=== PATIENT | female | born 1955 | race Caucasian/White ===

== ENCOUNTER 2019-10-22 19:16 | Emergency (ER) | payer OTHER, MEDICARE ==
[2019-10-22] MEDS ORDERED: Acetaminophen 500 MG Tab PO ONE (19:35)
--- NOTE | 2019-10-22 19:47 | EDM.PDOC ---
ED HPI GENERAL MEDICAL PROBLEM - General Stated Complaint: FELL Time Seen by Provider: 10/22/19 19:35 Source of Information: Reports: Patient History Limitations: Reports: No Limitations - History of Present Illness INITIAL COMMENTS - FREE TEXT/NARRATIVE: Patient comes emergency department today with complaints of a fall. Approximately 1:00 this afternoon the patient was trying to get into her bathtub when she was stepping up and over and with her right leg her left leg got caught and she fell spinning landing on the floor on her coccyx. She did not get knocked out. She has no head ache. No neck pain. She does complain of pain in the lower back. She denies any saddle anesthesia. No change in the functionality of her lower extremities. No paresthesias of the lower extremities. No loss or change in bowel or bladder. She complains of pain right on her tailbone when she sits down or stands up she has not take anything for pain prior to arrival. coccyx Pain Score (Numeric/FACES): 1 - Related Data Allergies Allergy/AdvReac Type Severity Reaction Status Date / Time adhesive Allergy Other Verified 10/22/19 19:53 Home Meds: Home Meds ARIPiprazole [Abilify] 5 mg PO DAILY 09/08/13 [History] lamoTRIgine [Lamotrigine] 1 tab PO DAILY 03/14/16 [History] lamoTRIgine [Lamotrigine] 2 tab PO BEDTIME 03/14/16 [History] Alendronate [Fosamax] 01/23/18 [History] Anastrozole [Arimidex] 1 tab PO DAILY 01/23/18 [History] Aspirin 1 tab PO DAILY 01/23/18 [History] Cholecalciferol (Vitamin D3) [Vitamin D3] 1 tab PO DAILY 01/23/18 [History] LORazepam [Ativan] 1 mg PO BEDTIME 01/23/18 [History] Multivitamin [Multivitamins] 1 tab PO DAILY 01/23/18 [History] [place]-3 Fatty Acids [Massena-3] 1,000 mg PO DAILY 01/23/18 [History] Vit A and D3 in Cod Liver Oil [Cod Liver Oil Softgel] 1 cap PO DAILY 01/23/18 [History] Vitamin E 1 cap PO DAILY 01/23/18 [History] LORazepam [Ativan] 0.5 mg PO DAILY 03/06/18 [History] Past Medical History HEENT History: Reports: Cataract Cardiovascular History: Reports: Other (See Below) Other Cardiovascular History: CHEST PAIN- NON CARDIAC Respiratory History: Reports: None Gastrointestinal History: Reports: None Musculoskeletal History: Reports: Arthritis, Other (See Below) Other Musculoskeletal History: 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 bells palsy Psychiatric History: Reports: Bipolar Other Psychiatric History: ECT 12 treatments 2009 Endocrine/Metabolic History: Reports: Obesity/BMI 30+, Osteopenia, Other (See Below) Other Endocrine/Metabolic History: impaired fasting glucose Hematologic History: Reports: None Immunologic History: Reports: None Oncologic (Cancer) History: Reports: Breast Dermatologic History: Reports: None - Past Surgical History Respiratory Surgical History: Reports: None GI Surgical History: Reports: None Female Surgical History: Reports: Other (See Below) Other Female Surgeries/Procedures: D&C, lump ectomy, lymphectomy Endocrine Surgical History: Reports: None Neurological Surgical History: Reports: None Musculoskeletal Surgical History: Reports: None Oncologic Surgical History: Reports: Lumpectomy, Other (See Below) Other Oncologic Surgeries/Procedures: lymphectomy Dermatological Surgical History: Reports: None ED ROS GENERAL - Review of Systems Review Of Systems: Comprehensive ROS is negative, except as noted in HPI. ED EXAM,LOWER BACK PAIN/INJURY - Physical Exam Exam: See Below Exam Limited By: No Limitations General Appearance: Alert, WD/WN, Mild Distress Respiratory/Chest: No Respiratory Distress Cardiovascular: Normal Peripheral Pulses Back Exam: Paraspinal Tenderness (Lower lumbar regions without any Bruising swelling ecchymosis or bony deformities or step-offs.) Neurological: Alert, Normal Mood/Affect, Normal Dorsiflexion, Normal Plantar Flexion, Normal Gait, Normal Reflexes, No Motor/Sensory Deficits, Oriented x 3 DTR - Lower Extremities: 2+: Knee (R), Knee (L), Ankle (R), Ankle (L) Skin Exam: Warm, Dry, Intact, Normal Color Course - Vital Signs Last Recorded V/S: Last Vital Signs Temp 99.3 F 10/22/19 19:16 Pulse 112 H 10/22/19 19:16 Resp 16 10/22/19 19:16 BP 143/97 H 10/22/19 19:16 Pulse Ox 93 L 10/22/19 19:16 - Orders/Labs/Meds Meds: Medications Discontinued Medications Generic Name Dose Route Start Last Admin Trade Name Shaila PRN Reason Stop Dose Admin Acetaminophen 1,000 mg 10/22/19 19:35 10/22/19 19:57 Tylenol Extra Strength PO 10/22/19 19:36 1,000 mg ONETIME ONE Administration - Radiology Interpretation Free Text/Narrative:: X-ray of the pelvis per radiology shows no acute osseous abnormality. Compression deformity of the L3 vertebral body with approximately 10% loss of body height. No significant retropulsion. Suspect acute compression deformity of the L3 vertebral body per radiology. Multilevel degenerative changes of the lumbar spine. Departure - Departure Time of Disposition: 20:37 Disposition: Home, Self-Care 01 Clinical Impression: Lumbar compression fracture Qualifiers: Encounter type: initial encounter Lumbar vertebra fracture level: L3 Qualified Code(s): S32.030A - Wedge compression fracture of third lumbar vertebra, initial encounter for closed fracture - Discharge Information Instructions: Spinal Compression Fracture Additional Instructions: Tylenol as needed for pain. See physical therapy friday for assessment and treatment. RICE therapy. Ice to the sore areas. Make position changes slowly. Do not bed ridden yourself as you will get more stiff. There is a line of too little and too much physical activity only you will know, Physical therapy will help with this. Recheck with your PCP next week. Consider Forteo with your history. If pain not controlled with above. [place] 1 tablet every 6 hrs with food as needed for pain. Caution sedation. Do not take this medication with Tylenol as they have the same medications in them. Started pack from the ED and RX given to the patient. #12. Return to the ED if new or worsening symptoms. Sepsis Event Note (ED) - Focused Exam Vital Signs: Vital Signs Temp Pulse Resp BP Pulse Ox 10/22/19 19:16 99.3 F 112 H 16 143/97 H 93 L - Assessment/Plan Assessment:: Acute L3 compression fracture from fall. Hx of osteoporosis. Plan: Tylenol as needed for pain. See physical therapy friday for assessment and treatment. RICE therapy. Ice to the sore areas. Make position changes slowly. Do not bed ridden yourself as you will get more stiff. There is a line of too little and too much physical activity only you will know, Physical therapy will help with this. Recheck with your PCP next week. If pain not controlled with above. [place] 1 tablet every 6 hrs with food as needed for pain. Caution sedation. Do not take this medication with Tylenol as they have the same medications in them. Started pack from the ED and RX given to the patient. #12. Return to the ED if new or worsening symptoms.
[2019-10-22 19:53] VITALS: BP 143/97; PULSE 112
--- NOTE | 2019-10-22 20:17 | CR ---
[id number] RAD/RAD Pelvis 1-2V EXAM: SINGLE VIEW PELVIS. INDICATION: FALL, COCCYX PAIN COMPARISON: None. DISCUSSION: No fracture, dislocation or other acute osseous abnormality. IMPRESSION: 1. No acute osseous abnormalities. Monster Martinez DO 10/22/192014 Thank you for allowing us to participate in the care of your patient.
--- NOTE | 2019-10-22 20:30 | CR ---
[id number] RAD/RAD Lumbar Spine W Oblique 4V EXAM: AP AND LATERAL LUMBAR SPINE. INDICATION: Trauma. COMPARISON: No previous similar exam is available for comparison. FINDINGS: Suspect acute compression deformity of the L3 vertebral body with approximately 10% loss of body height. No other fractures are identified. Mild multilevel degenerative changes of the lumbar spine including loss of disc space height, endplate osteophytosis and facet arthropathy. These findings are most pronounced at L5-S1. Vascular calcifications IMPRESSION: COMPRESSION DEFORMITY OF THE L3 VERTEBRAL BODY WITH APPROXIMATELY 10% LOSS OF BODY HEIGHT. NO SIGNIFICANT RETROPULSION. Monster Martinez DO 10/22/192028 Thank you for allowing us to participate in the care of your patient.
[2019-10-22] MEDS ORDERED: Take Home: Acetaminophen/HYDROcodone 325-5 MG, 5 Tab Pack PO ONE (20:41)
== END 2019-10-22 20:55 | disposition home or self-care (01) ==
LOC: VM.ED 19:16
DX: S32.039A Unspecified fracture of third lumbar vertebra, initial encounter for closed fracture (principal); E66.9 Obesity, unspecified; Z91.09 Other allergy status, other than to drugs and biological substances; Z79.82 Long term (current) use of aspirin; Z79.899 Other long term (current) drug therapy; Z68.35 Body mass index [BMI] 35.0-35.9, adult; W18.2XXA Fall in (into) shower or empty bathtub, initial encounter
CPT/HCPCS: 72110; 72170; 99283; A9270

== ENCOUNTER 2021-10-15 11:37 | Inpatient (IN) | payer OTHER, MEDICARE ==
[2021-10-15] MEDS ORDERED: oxyCODONE 5 MG Tab PO PRN (11:56)
[2021-10-15] MEDS ORDERED: Acetaminophen 325 MG Tab PO PRN (11:56)
[2021-10-15] MEDS ORDERED: Albuterol/Ipratropium 3.0-0.5 MG/3 ML Neb Soln NEB PRN (13:00)
[2021-10-15 13:11] LABS: ANION GAP 14.2 mmol/L (5-15)
[2021-10-15] MEDS ORDERED: Calcium Carbonate 750 MG Tab.Chew PO PRN (13:23)
[2021-10-15] MEDS: DRONABINOL 2.5 MG PO SCH (17:22)
[2021-10-15] MEDS: lamoTRIgine 100 MG Tab PO SCH (20:09)
[2021-10-15] MEDS: atorvaSTATin 10 MG Tab PO SCH (20:09)
[2021-10-15] MEDS: Amoxicillin/Clavulanate K 875-125 MG Tab PO SCH (20:09)
[2021-10-15] MEDS: buPROPion 100 MG Tab.SR PO SCH (20:09)
[2021-10-15] MEDS: LORazepam 1 MG Tab PO SCH (20:09)
[2021-10-15] MEDS ORDERED: lamoTRIgine 100 MG Tab PO SCH (21:00)
[2021-10-16] MEDS: DRONABINOL 2.5 MG PO SCH ×2 (06:11→17:28)
[2021-10-16] MEDS ORDERED: Potassium Chloride 20 MEQ Tab.ER PO ONE (07:08)
[2021-10-16] MEDS: Fluconazole 100 MG Tab PO SCH (08:22)
[2021-10-16] MEDS: ARIPiprazole 5 MG Tab PO SCH (08:22)
[2021-10-16] MEDS: Amoxicillin/Clavulanate K 875-125 MG Tab PO SCH ×2 (08:22→20:06)
[2021-10-16] MEDS: buPROPion 150 MG Tab.ER PO SCH (08:22)
[2021-10-16] MEDS: LORazepam 0.5 MG Tab PO SCH (08:22)
[2021-10-16] MEDS: Tamsulosin 0.4 MG Cap.ER PO SCH (08:23)
[2021-10-16] MEDS ORDERED: ACETIC ACID 0.25% TOP PRN (09:43)
[2021-10-16] MEDS: buPROPion 100 MG Tab.SR PO SCH (20:06)
[2021-10-16] MEDS: atorvaSTATin 10 MG Tab PO SCH (20:06)
[2021-10-16] MEDS: LORazepam 1 MG Tab PO SCH (20:06)
[2021-10-16] MEDS: lamoTRIgine 100 MG Tab PO SCH (20:07)
[2021-10-17] MEDS: DRONABINOL 2.5 MG PO SCH ×2 (06:07→18:13)
[2021-10-17] MEDS: buPROPion 150 MG Tab.ER PO SCH (09:10)
[2021-10-17] MEDS: ARIPiprazole 5 MG Tab PO SCH (09:10)
[2021-10-17] MEDS: Tamsulosin 0.4 MG Cap.ER PO SCH (09:10)
[2021-10-17] MEDS: Fluconazole 100 MG Tab PO SCH (09:11)
[2021-10-17] MEDS: Amoxicillin/Clavulanate K 875-125 MG Tab PO SCH ×2 (09:11→20:26)
[2021-10-17] MEDS: LORazepam 0.5 MG Tab PO SCH (09:11)
[2021-10-17] MEDS: buPROPion 100 MG Tab.SR PO SCH (20:26)
[2021-10-17] MEDS: atorvaSTATin 10 MG Tab PO SCH (20:26)
[2021-10-17] MEDS: LORazepam 1 MG Tab PO SCH (20:26)
[2021-10-17] MEDS: lamoTRIgine 100 MG Tab PO SCH (20:26)
[2021-10-18] MEDS: DRONABINOL 2.5 MG PO SCH (06:16)
[2021-10-18] MEDS ORDERED: LORazepam 0.5 MG Tab PO ONE (07:00)
[2021-10-18] MEDS: ARIPiprazole 5 MG Tab PO SCH (08:19)
[2021-10-18] MEDS: Fluconazole 100 MG Tab PO SCH (08:19)
[2021-10-18] MEDS: buPROPion 150 MG Tab.ER PO SCH (08:19)
[2021-10-18] MEDS: Amoxicillin/Clavulanate K 875-125 MG Tab PO SCH ×2 (08:20→20:19)
[2021-10-18] MEDS: Tamsulosin 0.4 MG Cap.ER PO SCH (08:20)
[2021-10-18] MEDS: LORazepam 0.5 MG Tab PO SCH (08:20)
[2021-10-18] MEDS: lamoTRIgine 100 MG Tab PO SCH (20:18)
[2021-10-18] MEDS: atorvaSTATin 10 MG Tab PO SCH (20:19)
[2021-10-18] MEDS: buPROPion 100 MG Tab.SR PO SCH (20:19)
[2021-10-18] MEDS: LORazepam 1 MG Tab PO SCH (20:19)
[2021-10-19] MEDS: ARIPiprazole 5 MG Tab PO SCH (08:36)
[2021-10-19] MEDS: LORazepam 0.5 MG Tab PO SCH (08:37)
[2021-10-19] MEDS: buPROPion 150 MG Tab.ER PO SCH (08:37)
[2021-10-19] MEDS: Tamsulosin 0.4 MG Cap.ER PO SCH (08:37)
[2021-10-19] MEDS: LORazepam 1 MG Tab PO SCH (20:10)
[2021-10-19] MEDS: atorvaSTATin 10 MG Tab PO SCH (20:10)
[2021-10-19] MEDS: lamoTRIgine 100 MG Tab PO SCH (20:10)
[2021-10-19] MEDS: buPROPion 100 MG Tab.SR PO SCH (20:10)
[2021-10-20] MEDS: buPROPion 150 MG Tab.ER PO SCH (09:04)
[2021-10-20] MEDS: LORazepam 0.5 MG Tab PO SCH (09:04)
[2021-10-20] MEDS: ARIPiprazole 5 MG Tab PO SCH (09:04)
[2021-10-20] MEDS: Tamsulosin 0.4 MG Cap.ER PO SCH (09:04)
[2021-10-20] MEDS: lamoTRIgine 100 MG Tab PO SCH (21:40)
[2021-10-20] MEDS: buPROPion 100 MG Tab.SR PO SCH (21:40)
[2021-10-20] MEDS: LORazepam 1 MG Tab PO SCH (21:41)
[2021-10-20] MEDS: atorvaSTATin 10 MG Tab PO SCH (21:42)
[2021-10-21] MEDS: Tamsulosin 0.4 MG Cap.ER PO SCH (08:12)
[2021-10-21] MEDS: buPROPion 150 MG Tab.ER PO SCH (08:12)
[2021-10-21] MEDS: ARIPiprazole 5 MG Tab PO SCH (08:12)
[2021-10-21] MEDS: LORazepam 0.5 MG Tab PO SCH (08:12)
[2021-10-21] MEDS: LORazepam 1 MG Tab PO SCH (21:21)
[2021-10-21] MEDS: atorvaSTATin 10 MG Tab PO SCH (21:21)
[2021-10-21] MEDS: lamoTRIgine 100 MG Tab PO SCH (21:21)
[2021-10-21] MEDS: buPROPion 100 MG Tab.SR PO SCH (21:21)
[2021-10-22] MEDS: buPROPion 150 MG Tab.ER PO SCH (08:04)
[2021-10-22] MEDS: ARIPiprazole 5 MG Tab PO SCH (08:04)
[2021-10-22] MEDS: LORazepam 0.5 MG Tab PO SCH (08:05)
[2021-10-22] MEDS: Tamsulosin 0.4 MG Cap.ER PO SCH (08:05)
[2021-10-22] MEDS: lamoTRIgine 100 MG Tab PO SCH (21:03)
[2021-10-22] MEDS: buPROPion 100 MG Tab.SR PO SCH (21:04)
[2021-10-22] MEDS: LORazepam 1 MG Tab PO SCH (21:04)
[2021-10-22] MEDS: atorvaSTATin 10 MG Tab PO SCH (21:04)
[2021-10-23] MEDS: LORazepam 0.5 MG Tab PO SCH (08:03)
[2021-10-23] MEDS: ARIPiprazole 5 MG Tab PO SCH (08:03)
[2021-10-23] MEDS: Tamsulosin 0.4 MG Cap.ER PO SCH (08:03)
[2021-10-23] MEDS: buPROPion 150 MG Tab.ER PO SCH (08:03)
[2021-10-23] MEDS: buPROPion 100 MG Tab.SR PO SCH (20:08)
[2021-10-23] MEDS: lamoTRIgine 100 MG Tab PO SCH (20:09)
[2021-10-23] MEDS: atorvaSTATin 10 MG Tab PO SCH (20:09)
[2021-10-23] MEDS: LORazepam 1 MG Tab PO SCH (20:09)
[2021-10-24] MEDS: Tamsulosin 0.4 MG Cap.ER PO SCH (08:24)
[2021-10-24] MEDS: LORazepam 0.5 MG Tab PO SCH (08:24)
[2021-10-24] MEDS: buPROPion 150 MG Tab.ER PO SCH (08:24)
[2021-10-24] MEDS: ARIPiprazole 5 MG Tab PO SCH (08:25)
[2021-10-24] MEDS: lamoTRIgine 100 MG Tab PO SCH (20:01)
[2021-10-24] MEDS: LORazepam 1 MG Tab PO SCH (20:02)
[2021-10-24] MEDS: buPROPion 100 MG Tab.SR PO SCH (20:03)
[2021-10-24] MEDS: atorvaSTATin 10 MG Tab PO SCH (20:03)
[2021-10-25 07:12] LABS: ANION GAP 11.9 mmol/L (5-15)
[2021-10-25] MEDS ORDERED: NS with KCl 40mEq 1,000 ML IV SCH (07:30)
[2021-10-25] MEDS: buPROPion 150 MG Tab.ER PO SCH (08:04)
[2021-10-25] MEDS: Tamsulosin 0.4 MG Cap.ER PO SCH (08:05)
[2021-10-25] MEDS: ARIPiprazole 5 MG Tab PO SCH (08:05)
[2021-10-25] MEDS: LORazepam 0.5 MG Tab PO SCH (08:05)
[2021-10-25] MEDS: Docusate Sodium 100 MG Cap PO SCH (08:06)
[2021-10-25 15:32] LABS: ANION GAP 12.8 mmol/L (5-15)
[2021-10-25] MEDS ORDERED: Magnesium Chloride 64 MG Tab.ER PO ONE ×2 (15:45→18:00)
[2021-10-25] MEDS: LORazepam 1 MG Tab PO SCH (20:31)
[2021-10-25] MEDS: buPROPion 100 MG Tab.SR PO SCH (20:31)
[2021-10-25] MEDS: lamoTRIgine 100 MG Tab PO SCH (20:33)
[2021-10-25] MEDS: atorvaSTATin 10 MG Tab PO SCH (20:34)
[2021-10-26] MEDS: LORazepam 0.5 MG Tab PO SCH (08:47)
[2021-10-26] MEDS: Tamsulosin 0.4 MG Cap.ER PO SCH (08:48)
[2021-10-26] MEDS: Potassium Chloride 10 MEQ Tab.ER PO SCH (08:48)
[2021-10-26] MEDS: Docusate Sodium 100 MG Cap PO SCH (08:48)
[2021-10-26] MEDS: ARIPiprazole 5 MG Tab PO SCH (08:48)
[2021-10-26] MEDS: buPROPion 150 MG Tab.ER PO SCH (08:49)
[2021-10-26] MEDS: Sodium Chloride 0.9% 10 ML Syringe FLUSH PRN (09:04)
[2021-10-26] MEDS: Magnesium Chloride 64 MG Tab.ER PO SCH ×2 (11:46→20:28)
[2021-10-26] MEDS: Nitrofurantoin Monohydrate/Macrocrystalline 100 MG Cap PO SCH (17:39)
[2021-10-26] MEDS: buPROPion 100 MG Tab.SR PO SCH (20:24)
[2021-10-26] MEDS: atorvaSTATin 10 MG Tab PO SCH (20:26)
[2021-10-26] MEDS: LORazepam 1 MG Tab PO SCH (20:28)
[2021-10-26] MEDS: lamoTRIgine 100 MG Tab PO SCH (20:32)
[2021-10-27] MEDS: Sodium Chloride 0.9% 10 ML Syringe FLUSH PRN (08:32)
[2021-10-27] MEDS: Magnesium Chloride 64 MG Tab.ER PO SCH ×2 (08:34→20:50)
[2021-10-27] MEDS: ARIPiprazole 5 MG Tab PO SCH (08:34)
[2021-10-27] MEDS: Tamsulosin 0.4 MG Cap.ER PO SCH (08:35)
[2021-10-27] MEDS: Docusate Sodium 100 MG Cap PO SCH (08:35)
[2021-10-27] MEDS: LORazepam 0.5 MG Tab PO SCH (08:35)
[2021-10-27] MEDS: Potassium Chloride 10 MEQ Tab.ER PO SCH (08:35)
[2021-10-27] MEDS: buPROPion 150 MG Tab.ER PO SCH (08:36)
[2021-10-27] MEDS: Nitrofurantoin Monohydrate/Macrocrystalline 100 MG Cap PO SCH ×2 (08:36→20:47)
[2021-10-27] MEDS: Lactobacillus Rhamnosus GG (Probiotic) Cap PO SCH (12:14)
[2021-10-27] MEDS: LORazepam 1 MG Tab PO SCH (20:48)
[2021-10-27] MEDS: atorvaSTATin 10 MG Tab PO SCH (20:49)
[2021-10-27] MEDS: buPROPion 100 MG Tab.SR PO SCH (20:50)
[2021-10-27] MEDS: lamoTRIgine 100 MG Tab PO SCH (20:51)
[2021-10-28] MEDS: Docusate Sodium 100 MG Cap PO SCH (08:49)
[2021-10-28] MEDS: ARIPiprazole 5 MG Tab PO SCH (08:49)
[2021-10-28] MEDS: Magnesium Chloride 64 MG Tab.ER PO SCH ×2 (08:49→20:40)
[2021-10-28] MEDS: Nitrofurantoin Monohydrate/Macrocrystalline 100 MG Cap PO SCH ×2 (08:50→20:43)
[2021-10-28] MEDS: Potassium Chloride 10 MEQ Tab.ER PO SCH (08:51)
[2021-10-28] MEDS: Lactobacillus Rhamnosus GG (Probiotic) Cap PO SCH (08:51)
[2021-10-28] MEDS: LORazepam 0.5 MG Tab PO SCH (08:51)
[2021-10-28] MEDS: Tamsulosin 0.4 MG Cap.ER PO SCH (08:52)
[2021-10-28] MEDS: buPROPion 150 MG Tab.ER PO SCH (08:52)
[2021-10-28] MEDS: Sodium Chloride 0.9% 10 ML Syringe FLUSH PRN (16:32)
[2021-10-28] MEDS: buPROPion 100 MG Tab.SR PO SCH (20:40)
[2021-10-28] MEDS: LORazepam 1 MG Tab PO SCH (20:41)
[2021-10-28] MEDS: atorvaSTATin 10 MG Tab PO SCH (20:42)
[2021-10-28] MEDS: lamoTRIgine 100 MG Tab PO SCH (20:43)
[2021-10-29] MEDS: LORazepam 0.5 MG Tab PO SCH (08:00)
[2021-10-29] MEDS: Nitrofurantoin Monohydrate/Macrocrystalline 100 MG Cap PO SCH ×2 (08:00→20:05)
[2021-10-29] MEDS: Magnesium Chloride 64 MG Tab.ER PO SCH ×2 (08:03→20:07)
[2021-10-29] MEDS: Docusate Sodium 100 MG Cap PO SCH (08:03)
[2021-10-29] MEDS: ARIPiprazole 5 MG Tab PO SCH (08:03)
[2021-10-29] MEDS: Tamsulosin 0.4 MG Cap.ER PO SCH (08:04)
[2021-10-29] MEDS: Potassium Chloride 10 MEQ Tab.ER PO SCH (08:04)
[2021-10-29] MEDS: buPROPion 150 MG Tab.ER PO SCH (08:04)
[2021-10-29] MEDS: Lactobacillus Rhamnosus GG (Probiotic) Cap PO SCH (08:05)
[2021-10-29] MEDS ORDERED: ARIPiprazole 5 MG Tab PO ONE (09:15)
[2021-10-29] MEDS: buPROPion 100 MG Tab.SR PO SCH (20:04)
[2021-10-29] MEDS: atorvaSTATin 10 MG Tab PO SCH (20:04)
[2021-10-29] MEDS: LORazepam 1 MG Tab PO SCH (20:06)
[2021-10-29] MEDS: lamoTRIgine 100 MG Tab PO SCH (20:07)
[2021-10-30] MEDS: Potassium Chloride 10 MEQ Tab.ER PO SCH (08:43)
[2021-10-30] MEDS: ARIPiprazole 5 MG Tab PO SCH (08:44)
[2021-10-30] MEDS: LORazepam 0.5 MG Tab PO SCH (08:44)
[2021-10-30] MEDS: Lactobacillus Rhamnosus GG (Probiotic) Cap PO SCH (08:44)
[2021-10-30] MEDS: buPROPion 150 MG Tab.ER PO SCH (08:44)
[2021-10-30] MEDS: Docusate Sodium 100 MG Cap PO SCH (08:45)
[2021-10-30] MEDS: Nitrofurantoin Monohydrate/Macrocrystalline 100 MG Cap PO SCH ×2 (08:45→20:58)
[2021-10-30] MEDS: Tamsulosin 0.4 MG Cap.ER PO SCH (08:45)
[2021-10-30] MEDS: Magnesium Chloride 64 MG Tab.ER PO SCH ×2 (08:51→20:58)
[2021-10-30] MEDS: buPROPion 100 MG Tab.SR PO SCH (20:58)
[2021-10-30] MEDS: atorvaSTATin 10 MG Tab PO SCH (20:58)
[2021-10-30] MEDS: lamoTRIgine 100 MG Tab PO SCH (20:58)
[2021-10-30] MEDS: LORazepam 1 MG Tab PO SCH (20:58)
[2021-10-31 07:18] LABS: ANION GAP 11.6 mmol/L (5-15)
[2021-10-31] MEDS: Potassium Chloride 10 MEQ Tab.ER PO SCH (08:49)
[2021-10-31] MEDS: buPROPion 150 MG Tab.ER PO SCH (08:49)
[2021-10-31] MEDS: Tamsulosin 0.4 MG Cap.ER PO SCH (08:49)
[2021-10-31] MEDS: Magnesium Chloride 64 MG Tab.ER PO SCH ×2 (08:49→21:20)
[2021-10-31] MEDS: ARIPiprazole 5 MG Tab PO SCH (08:49)
[2021-10-31] MEDS: Nitrofurantoin Monohydrate/Macrocrystalline 100 MG Cap PO SCH (08:50)
[2021-10-31] MEDS: Lactobacillus Rhamnosus GG (Probiotic) Cap PO SCH (08:50)
[2021-10-31] MEDS: Docusate Sodium 100 MG Cap PO SCH (08:50)
[2021-10-31] MEDS: LORazepam 0.5 MG Tab PO SCH (08:50)
[2021-10-31] MEDS: buPROPion 100 MG Tab.SR PO SCH (21:20)
[2021-10-31] MEDS: atorvaSTATin 10 MG Tab PO SCH (21:20)
[2021-10-31] MEDS: LORazepam 1 MG Tab PO SCH (21:21)
[2021-10-31] MEDS: lamoTRIgine 100 MG Tab PO SCH (21:21)
[2021-11-01] MEDS: ARIPiprazole 5 MG Tab PO SCH (09:32)
[2021-11-01] MEDS: LORazepam 0.5 MG Tab PO SCH (09:33)
[2021-11-01] MEDS: Magnesium Chloride 64 MG Tab.ER PO SCH ×2 (09:33→20:27)
[2021-11-01] MEDS: Potassium Chloride 10 MEQ Tab.ER PO SCH (09:35)
[2021-11-01] MEDS: Lactobacillus Rhamnosus GG (Probiotic) Cap PO SCH (09:35)
[2021-11-01] MEDS: buPROPion 150 MG Tab.ER PO SCH (09:35)
[2021-11-01] MEDS: Tamsulosin 0.4 MG Cap.ER PO SCH (09:35)
[2021-11-01] MEDS: Docusate Sodium 100 MG Cap PO SCH (09:35)
[2021-11-01] MEDS ORDERED: LORazepam 1 MG Tab PO PRN (14:46)
[2021-11-01] MEDS: atorvaSTATin 10 MG Tab PO SCH (20:28)
[2021-11-01] MEDS: buPROPion 100 MG Tab.SR PO SCH (20:28)
[2021-11-01] MEDS: LORazepam 1 MG Tab PO SCH (20:28)
[2021-11-01] MEDS: lamoTRIgine 100 MG Tab PO SCH (20:30)
[2021-11-02 07:44] VITALS: BP 132/67; PULSE 98
[2021-11-02] MEDS: ARIPiprazole 5 MG Tab PO SCH (08:09)
[2021-11-02] MEDS: Potassium Chloride 10 MEQ Tab.ER PO SCH (08:09)
[2021-11-02] MEDS: Tamsulosin 0.4 MG Cap.ER PO SCH (08:10)
[2021-11-02] MEDS: buPROPion 150 MG Tab.ER PO SCH (08:10)
[2021-11-02] MEDS: Lactobacillus Rhamnosus GG (Probiotic) Cap PO SCH (08:10)
[2021-11-02] MEDS: LORazepam 0.5 MG Tab PO SCH (08:10)
[2021-11-02] MEDS: Magnesium Chloride 64 MG Tab.ER PO SCH (08:10)
[2021-11-02] MEDS: Docusate Sodium 100 MG Cap PO SCH (08:11)
== END 2021-11-02 12:35 | disposition home health service (06) | DRG 949 ==
LOC: VM.MS 11:37
PROVIDERS: ADMIT Family Medicine; ATTEND Family Medicine
DX: T81.40XD Infection following a procedure, unspecified, subsequent encounter (principal); N39.0 Urinary tract infection, site not specified; G89.18 Other acute postprocedural pain; R33.8 Other retention of urine; Z90.49 Acquired absence of other specified parts of digestive tract; E66.9 Obesity, unspecified; F31.9 Bipolar disorder, unspecified; F17.210 Nicotine dependence, cigarettes, uncomplicated; M51.36 Other intervertebral disc degeneration, lumbar region; Z85.038 Personal history of other malignant neoplasm of large intestine; Z79.899 Other long term (current) drug therapy; Z91.09 Other allergy status, other than to drugs and biological substances; M19.90 Unspecified osteoarthritis, unspecified site; M17.12 Unilateral primary osteoarthritis, left knee; G51.0 Bell's palsy; M85.80 Other specified disorders of bone density and structure, unspecified site; Z85.3 Personal history of malignant neoplasm of breast; Z98.890 Other specified postprocedural states; G89.29 Other chronic pain; N99.89 Other postprocedural complications and disorders of genitourinary system; T81.30XD Disruption of wound, unspecified, subsequent encounter; Z68.28 Body mass index [BMI] 28.0-28.9, adult
CPT/HCPCS: 36415; 51798; 80048; 81001; 83735; 84132; 85027; 87086; 87088; 87186; 92610-GN; 97110-GO; 97110-GP; 97112-GP; 97116-GP; 97162-GP; 97165-GO; 97530-GP; 97535-GO; A9270-GY; J1642; J3480; J3490

== ENCOUNTER 2023-07-09 20:47 | Emergency (ER) | payer BC, MEDICARE ==
[2023-07-09 21:10] VITALS: BP 159/87; PULSE 77
[2023-07-09] MEDS ORDERED: Sodium Chloride 0.9% 10 ML Syringe FLUSH PRN (21:10)
[2023-07-09] MEDS: Ondansetron 4 MG/2 ML SDV IVPUSH ONE (21:29)
[2023-07-09 21:34] LABS: BASOPHILS PERCENT AUTO 0.1 % (0.2-1.2); EOSINOPHILS ABSOLUTE AUTO 0.1 x10^3/uL (0.0-0.5); EOSINOPHILS PERCENT AUTO 1.5 % (0.0-4.0); HEMATOCRIT 40.3 % (33.0-47.0); HEMOGLOBIN 13.5 g/dL (12.0-16.0); IMMATURE GRAN ABSOLUTE AUTO 0.01 x10^3/uL (0.00-0.07); LYMPHOCYTES ABSOLUTE AUTO 1.4 x10^3/uL (1.0-4.8); LYMPHOCYTES PERCENT AUTO 18.9 % (25.0-50.0); MEAN CORPUSCULAR HEMOGLOBIN 31.7 pg (26.0-32.0); MEAN CORPUSCULAR HGB CONC 33.5 g/dL (32.0-36.0); MEAN CORPUSCULAR VOLUME 94.6 fL (78.0-93.0); MONOCYTES ABSOLUTE AUTO 0.4 x10^3/uL (0.0-0.8); MONOCYTES PERCENT AUTO 5.5 % (2.0-11.0); NEUTROPHILS ABSOLUTE AUTO 5.5 x10^3/uL (1.8-7.7); NEUTROPHILS PERCENT AUTO 73.9 % (50.0-80.0); PLATELET COUNT,PLT 138 x10^3/uL (130-400); RED BLOOD CELL COUNT 4.26 x10^6/uL (4.00-5.50); WHITE BLOOD CELL COUNT,WBC 7.4 x10^3/uL (4.0-10.0)
[2023-07-09 21:48] LABS: APPEARANCE,URINE CLEAR (CLEAR); BILIRUBIN,URINE NEGATIVE (NEGATIVE); COLOR,URINE YELLOW (YELLOW); GLUCOSE,URINE NEGATIVE (NEGATIVE); KETONES,URINE NEGATIVE (NEGATIVE); LEUKOCYTE ESTERASE,URINE NEGATIVE (NEGATIVE); NITRITE,URINE NEGATIVE (NEGATIVE); OCCULT BLOOD,URINE NEGATIVE (NEGATIVE); PH,URINE 6.5 (5.0-8.0); PROTEIN,URINE NEGATIVE (NEGATIVE); UROBILINOGEN,URINE 0.2 EU/dL (0.2)
[2023-07-09 21:49] LABS: LACTIC ACID 1.4 mmol/L (0.4-2.0)
[2023-07-09 21:53] LABS: PROTHROMBIN TIME 9.9 SEC (8.9-11.5)
[2023-07-09 21:55] LABS: A/G RATIO 1.32; ALANINE AMINOTRANSFERASE,ALT 23 U/L (14-59); ALBUMIN 4.1 g/dL (3.4-5.0); ALKALINE PHOSPHATASE 87 U/L (46-116); AMYLASE 61 U/L (25-115); ASPARTATE AMNIOTRANSFERASE,AST 43 U/L (15-37); BILIRUBIN TOTAL 0.7 mg/dL (0.2-1.0); BLOOD UREA NITROGEN,BUN 10 mg/dL (7-18); CALCIUM 9.6 mg/dL (8.5-10.1); CARBON DIOXIDE,CO2 28 mmol/L (21-32); CHLORIDE,CL 106 mmol/L (98-107); CREATININE 0.9 mg/dL (0.55-1.02); EST CRCL DRUG DOSING (CG) 56.78 mL/min; GLUCOSE RANDOM 103 mg/dL (70-99); LIPASE 64 U/L (19-71); MAGNESIUM 2.1 mg/dL (1.8-2.4); PROTEIN TOTAL,TP 7.2 g/dL (6.4-8.2); SODIUM,NA 143 mmol/L (136-145); TSH ULTRASENSITIVE 3.151 uIU/mL (0.358-3.74)
[2023-07-09 21:57] LABS: ANION GAP 15.4 mmol/L (5-15); C-REACTIVE PROTEIN < 0.50 mg/dL (<=0.50); ESTIMATED GFR 70 mL/min (>=60); POTASSIUM,K 6.4 mmol/L (3.5-5.1)
[2023-07-09] MEDS: Ondansetron 4 MG Tab.DIS PO ONE (22:08)
== END 2023-07-09 22:20 | disposition home or self-care (01) ==
LOC: VM.ED 20:47
DX: R10.84 Generalized abdominal pain (principal); E66.9 Obesity, unspecified; Z68.29 Body mass index [BMI] 29.0-29.9, adult; Z79.899 Other long term (current) drug therapy; Z91.048 Other nonmedicinal substance allergy status
CPT/HCPCS: 80053; 81003; 82150; 83605; 83690; 83735; 84443; 85025; 85610; 85730; 86140; 96374; 99284; A9270; J2405; 36415